=== PATIENT | female | born 1950 | race Caucasian/White ===

== ENCOUNTER → 2016-09-26 | Outpatient (CLI) | payer MEDICARE | LOC: HEART 5 11:46 | DX: J44.9 Chronic obstructive pulmonary disease, unspecified (principal); R07.9 Chest pain, unspecified | CPT/HCPCS: 94060 ==

== ENCOUNTER 2020-11-15 22:08 | Inpatient (IN) | payer MEDICARE ==
[~2020-11-15] VITALS: Ht 167.6 cm; Wt 65.8 kg
[2020-11-16 00:23] LABS: HEMOGLOBIN 15.5 gm/dl (12.3-15.3); RED BLOOD COUNT 5.06 M/UL (4.00-5.10); WHITE BLOOD COUNT 11.7 K/UL (4.5-11.0)
[2020-11-16 00:37] LABS: BUN/CREATININE RATIO 18 (0-10)
[2020-11-16] MEDS ORDERED: XANAX0.5 MG PO (06:24)
[2020-11-16] MEDS ORDERED: ALPRAZOLAM0.5 MG PO (06:26)
[2020-11-16] MEDS ORDERED: OXYCODONE HCL10 MG PO (06:26)
[2020-11-16] MEDS ORDERED: TELMISARTAN80 MG PO (06:27)
[2020-11-16] MEDS ORDERED: CILOSTAZOL50 MG PO (06:28)
[2020-11-16] MEDS ORDERED: TIZANIDINE HCL4 MG PO (06:28)
[2020-11-16] MEDS ORDERED: MELOXICAM15 MG PO (06:29)
[2020-11-16] MEDS ORDERED: COREG CR80 MG PO (06:29)
[2020-11-16] MEDS ORDERED: PRAVASTATIN SOD20 MG PO (06:30)
[2020-11-16] MEDS ORDERED: ASPIRIN EC81 MG PO (06:30)
[2020-11-16] MEDS ORDERED: CLONIDINE HCL0.2 MG PO (06:31)
[2020-11-16] MEDS ORDERED: GABAPENTIN800 MG PO (06:31)
[2020-11-16] MEDS ORDERED: METFORMIN HCL1000 MG PO (06:32)
[2020-11-16] MEDS ORDERED: ISOSORBIDE MONO60 MG PO (06:33)
[2020-11-17 03:52] LABS: BUN/CREATININE RATIO 19 (0-10)
[2020-11-18 05:35] LABS: BUN/CREATININE RATIO 20 (0-10)
[2020-11-19 03:48] LABS: BUN/CREATININE RATIO 20 (0-10)
[2020-11-20 03:50] LABS: BUN/CREATININE RATIO 23 (0-10)
[2020-11-21 07:34] LABS: BUN/CREATININE RATIO 24 (0-10)
[2020-11-22 06:32] LABS: BUN/CREATININE RATIO 26 (0-10)
[2020-11-22 06:59] LABS: HEMOGLOBIN 15.4 gm/dl (12.3-15.3); RED BLOOD COUNT 5.08 M/UL (4.00-5.10); WHITE BLOOD COUNT 10.7 K/UL (4.5-11.0)
[2020-11-22] MEDS ORDERED: AMLODIPINE BESYL5 MG PO (11:17)
[2020-11-22] MEDS ORDERED: ISOSORBIDE MONO30 MG PO (11:17)
[2020-11-22] MEDS ORDERED: CARVEDILOL12.5 MG PO (11:29)
[2020-11-22] MEDS ORDERED: HYDRALAZINE HCL50 MG PO (11:29)
[2020-11-22] MEDS ORDERED: FERROUS SULFAT325 M2 PO (11:43)
== END 2020-11-22 18:30 | disposition home or self-care (01) | DRG 305 ==
LOC: ER1 22:08 → CDU 11-16 03:12 → MED SURG 4 11-16 03:12
PROVIDERS: Internal Medicine; Physician Assistant; ADMIT Internal Medicine
PROC: B24BZZ4 Ultrasonography of Heart with Aorta, Transesophageal (ICD-10-PCS; principal; 2020-11-16)
DX: I16.0 Hypertensive urgency (principal); F11.20 Opioid dependence, uncomplicated; E87.1 Hypo-osmolality and hyponatremia; E44.0 Moderate protein-calorie malnutrition; Z20.822 Contact with and (suspected) exposure to COVID-19; I95.9 Hypotension, unspecified; F17.210 Nicotine dependence, cigarettes, uncomplicated; F41.9 Anxiety disorder, unspecified; F32.9 Major depressive disorder, single episode, unspecified; F13.10 Sedative, hypnotic or anxiolytic abuse, uncomplicated; E87.6 Hypokalemia; I25.10 Atherosclerotic heart disease of native coronary artery without angina pectoris; I08.1 Rheumatic disorders of both mitral and tricuspid valves; E78.5 Hyperlipidemia, unspecified; I27.20 Pulmonary hypertension, unspecified; G89.29 Other chronic pain; E11.51 Type 2 diabetes mellitus with diabetic peripheral angiopathy without gangrene; E11.40 Type 2 diabetes mellitus with diabetic neuropathy, unspecified; Z82.3 Family history of stroke; Z79.01 Long term (current) use of anticoagulants; Z79.84 Long term (current) use of oral hypoglycemic drugs; Z79.82 Long term (current) use of aspirin; Z90.49 Acquired absence of other specified parts of digestive tract; Z82.49 Family history of ischemic heart disease and other diseases of the circulatory system; Z68.23 Body mass index [BMI] 23.0-23.9, adult
CPT/HCPCS: ECHO; 36415; 70496; 70498; 71045; 80048; 80053; 80061; 80307; 81001; 82550; 82553; 82746; 82962; 83036; 83540; 83550; 83735; 83874; 84100; 84439; 84443; 84484; 84550; 85025; 86140; 87086; 93005; 93306; 96372; 96374; 99285; G0378; J1650; J2405; Q9967; U0002